=== PATIENT | male | born 1950 | race African-American/Black ===

== ENCOUNTER 2021-03-09 19:03 | Emergency (ER) | payer OTHER, MEDICAID ==
[~2021-03-09] VITALS: Ht 182.9 cm; Wt 88.0 kg
[~2021-03-09 19:03] MED LIST: AMLO5TAB4 PO; ATOR20TA65 PO; DICY10CA88 PO; ESOM40CA PO; GABA-529 PO; METO25TA6 PO; MORP30TA66 PO; POTA10CA42 PO; TERA2CAP4 PO; TRAZ-251 PO
[2021-03-09] MEDS ORDERED: LIDOCAINE HCL/EPINEPHRINE 1%-EPI 1:100,000 50 ML VIAL INFIL ONE (19:45)
[2021-03-09] MEDS ORDERED: TETANUS, DIPHTHERIA, PERTUSSIS VAC/PF 0.5ML (>7YR OLD) IM ONE (19:45)
[2021-03-09] MEDS ORDERED: ACETAMINOPHEN 325MG TABLET PO ONE (19:45)
[2021-03-09] MEDS ORDERED: LIDOCAINE HCL/EPINEPHRINE 1%-EPI 1:100,000 20 ML VIAL INFIL NR (20:00)
[2021-03-09 21:55] VITALS: BP 142/81
== END 2021-03-09 22:19 | disposition home or self-care (01) ==
LOC: ER 19:03
DX: S01.01XA Laceration without foreign body of scalp, initial encounter (principal); S62.664A Nondisplaced fracture of distal phalanx of right ring finger, initial encounter for closed fracture; I10 Essential (primary) hypertension; W01.0XXA Fall on same level from slipping, tripping and stumbling without subsequent striking against object, initial encounter; Y93.89 Activity, other specified; Y92.012 Bathroom of single-family (private) house as the place of occurrence of the external cause
CPT/HCPCS: 12002; 70450; 73140; 90471; 90715; 99284; J3490

== ENCOUNTER 2021-03-16 20:48 | Emergency (ER) | payer OTHER, MEDICAID ==
[~2021-03-16] VITALS: Ht 182.9 cm; Wt 84.0 kg
[2021-03-16 21:02] VITALS: BP 123/88
== END 2021-03-16 21:56 | disposition home or self-care (01) ==
LOC: ER 20:48
DX: Z48.02 Encounter for removal of sutures (principal)
CPT/HCPCS: 99281

== ENCOUNTER 2022-05-12 18:33 | Emergency (ER) | payer OTHER, MEDICAID ==
[~2022-05-12] VITALS: Ht 177.8 cm; Wt 87.0 kg
[2022-05-12 18:37] VITALS: BP 136/97
[2022-05-12] MEDS ORDERED: KETOROLAC 30MG/ML VIAL IM ONE (19:45)
[2022-05-12] MEDS ORDERED: KETOROLAC 30MG/ML VIAL IM NR (23:15)
[2022-05-13] MEDS ORDERED: HYDR-4001 MT (00:53)
== END 2022-05-13 02:31 | disposition home or self-care (01) ==
LOC: ER 18:33
DX: M25.561 Pain in right knee (principal); I10 Essential (primary) hypertension; Z85.6 Personal history of leukemia; Z98.890 Other specified postprocedural states; Z79.899 Other long term (current) drug therapy
CPT/HCPCS: 72170; 73560; 96372; 99284; J1885

== ENCOUNTER 2023-06-16 20:50 | Emergency (ER) | payer OTHER, MEDICAID ==
[~2023-06-16] VITALS: Ht 175.3 cm; Wt 80.0 kg
[~2023-06-16 20:50] MED LIST changes: +DICY-18 PO; -DICY10CA88 PO; +HYDR-4001 MT; -POTA10CA42 PO; +POTA10CA83 PO
[2023-06-16 20:55] VITALS: O2SAT 98
[2023-06-16] MEDS ORDERED: ACETAMINOPHEN 325MG TABLET PO STA (22:16)
[2023-06-16 23:39] LABS: BASOPHILS % 0.3 % (0.0-2.0); EOSINOPHILS % 0.2 % (0.0-5.0); HEMATOCRIT. 38.2 % (42.0-52.0); HEMOGLOBIN. 12.4 g/dL (14.0-18.0); LYMPHOCYTES % 11.5 % (20.0-50.0); MEAN CORPUSCULAR HEMOGLOBIN 29.8 pg (28.0-32.0); MEAN CORPUSCULAR HGB CONC 32.3 g/dL (31.0-37.0); MEAN CORPUSCULAR VOLUME 92.2 fL (80.0-94.0); MEAN PLATELET VOLUME 7.8 fl (7.4-10.4); MONOCYTES % 8.5 % (2.0-8.0); NEUTROPHILS % 79.5 % (40.0-76.0); PLATELET 230 x1000/uL (130-400); RED BLOOD CELL COUNT 4.15 mill/uL (4.7-6.1); RED CELL DISTRIBUTION WIDTH 15.7 % (11.6-14.6); WHITE BLOOD COUNT 10.4 x1000/uL (4.5-11.0)
[2023-06-17 00:07] LABS: ALANINE AMINOTRANSFERASE 14 IU/L (10-49); ALBUMIN 4.1 g/dL (3.2-4.8); ASPARTATE AMINOTRANSFERASE 24 IU/L (<34); BILIRUBIN TOTAL 0.6 mg/dL (0.1-1.0); CARBON DIOXIDE 25 mEq/L (21-32); CHLORIDE 101 mEq/L (98-107); CREATININE 1.3 mg/dL (0.6-1.3); GLUCOSE 104 mg/dL (70-105); POTASSIUM 3.7 mEq/L (3.5-5.1); PROTEIN TOTAL 7.1 g/dL (6.0-8.3); SODIUM 136 mEq/L (136-145); UREA NITROGEN BLOOD 15 mg/dL (9-23)
[2023-06-17] MEDS ORDERED: MORPHINE SULFATE 4 MG/ML CPJ (NOT FOR IM USE) IV ONE (01:00)
[2023-06-17 01:12] LABS: CLARITY URINE CLEAR (CLEAR); COLOR URINE YELLOW (YELLOW); GLUCOSE URINE NEGATIVE (NEGATIVE); KETONES URINE NEGATIVE (NEGATIVE); LEUKOCYTE ESTERASE URINE NEGATIVE (NEGATIVE); NITRITE URINE NEGATIVE (NEGATIVE); OCCULT BLOOD URINE NEGATIVE (NEGATIVE); PROTEIN URINE TRACE (NEGATIVE); SPECIFIC GRAVITY URINE 1.015 (1.005-1.030)
[2023-06-17 01:16] LABS: BACTERIA URINE NONE SEEN; RBC URINE 0-2 /hpf (0-2); SQUAMOUS EPITHELIAL CELL URINE NONE SEEN /lpf (RARE/1+); WBC URINE 0-2 /hpf (0-2); YEAST URINE NONE SEEN
[2023-06-17 01:39] LABS: TROPONIN I HIGH SENSITIVITY 16 ng/L (3.0-53)
[2023-06-17 01:49] LABS: TROPONIN I HIGH SENSITIVITY 15 ng/L (3.0-53)
[2023-06-17 02:24] VITALS: TEMP 98.2
[2023-06-17 02:48] VITALS: BP 155/86; PULSE 72; RESP 12
[2023-06-17] MEDS ORDERED: FENTANYL CITRATE 50 MCG/ML IV NR (04:15)
== END 2023-06-17 04:33 | disposition short-term general hospital (02) ==
LOC: ER 20:50
DX: S12.110A Anterior displaced Type II dens fracture, initial encounter for closed fracture (principal); I10 Essential (primary) hypertension; E78.00 Pure hypercholesterolemia, unspecified; Z98.890 Other specified postprocedural states; Z96.653 Presence of artificial knee joint, bilateral; Z85.9 Personal history of malignant neoplasm, unspecified; X58.XXXA Exposure to other specified factors, initial encounter; Y93.89 Activity, other specified; Y92.89 Other specified places as the place of occurrence of the external cause; Y99.8 Other external cause status
CPT/HCPCS: 99285; 70450; 71045; 80053; 83880; 85025; 84484 ×2; 36415 ×2; 72125; 96374; 96375; 81003; J3010; J2270

== ENCOUNTER 2024-02-19 17:48 | Emergency (ER) | payer OTHER, MEDICAID ==
[~2024-02-19] VITALS: Ht 180.3 cm; Wt 81.0 kg
[2024-02-19 17:50] VITALS: O2SAT 100
[2024-02-19] MEDS: SODIUM CHLORIDE 0.9% 1,000 ML IV ONE (18:23)
[2024-02-19 18:30] VITALS: TEMP 98
[2024-02-19 19:45] LABS: BASOPHILS % 0.4 % (0.0-2.0); EOSINOPHILS % 1.3 % (0.0-5.0); HEMATOCRIT. 38.4 % (42.0-52.0); HEMOGLOBIN. 12.5 g/dL (14.0-18.0); LYMPHOCYTES % 30.1 % (20.0-50.0); MEAN CORPUSCULAR HEMOGLOBIN 30.5 pg (28.0-32.0); MEAN CORPUSCULAR HGB CONC 32.6 g/dL (31.0-37.0); MEAN CORPUSCULAR VOLUME 93.6 fL (80.0-94.0); MEAN PLATELET VOLUME 7.6 fl (7.4-10.4); MONOCYTES % 10.3 % (2.0-8.0); NEUTROPHILS % 57.9 % (40.0-76.0); PLATELET 199 x1000/uL (130-400); RED CELL DISTRIBUTION WIDTH 16.5 % (11.6-14.6); WHITE BLOOD COUNT 6.2 x1000/uL (4.5-11.0)
[2024-02-19 19:48] LABS: CARBON DIOXIDE 23 mEq/L (21-32); CHLORIDE 108 mEq/L (98-107); POTASSIUM 3.3 mEq/L (3.5-5.1); SODIUM 139 mEq/L (136-145)
[2024-02-19 19:49] LABS: CALCIUM 9.4 mg/dL (8.7-10.4)
[2024-02-19 19:54] LABS: GLUCOSE 70 mg/dL (70-105); UREA NITROGEN BLOOD 15 mg/dL (9-23)
[2024-02-19 19:56] LABS: ALANINE AMINOTRANSFERASE 20 IU/L (10-49); ALBUMIN 3.9 g/dL (3.2-4.8); ASPARTATE AMINOTRANSFERASE 18 IU/L (<34); BILIRUBIN DIRECT 0.2 mg/dL (<=3.0); BILIRUBIN TOTAL 0.5 mg/dL (0.1-1.0); PROTEIN TOTAL 6.6 g/dL (6.0-8.3); TROPONIN I HIGH SENSITIVITY 15 ng/L (3.0-53)
[2024-02-19 21:00] VITALS: BP 158/98; PULSE 82; RESP 15
== END 2024-02-19 21:20 | disposition home or self-care (01) ==
LOC: ER 17:48
DX: R53.1 Weakness (principal); R42 Dizziness and giddiness; I10 Essential (primary) hypertension; Z85.9 Personal history of malignant neoplasm, unspecified; Z98.890 Other specified postprocedural states; Z79.899 Other long term (current) drug therapy
CPT/HCPCS: 99285; 96360; 71045; 80076; 80048; 83605; 85025; 84484; 36415; 93005; J7030

== ENCOUNTER 2024-03-16 18:39 | Inpatient (IN) | payer OTHER, MEDICAID ==
[~2024-03-16] VITALS: Ht 182.9 cm; Wt 93.0 kg
[2024-03-16] MEDS: SODIUM CHLORIDE 0.9% 1,000 ML IV ONE (19:49)
[2024-03-16] MEDS: MORPHINE SULFATE 4 MG/ML INJ (FOR IV/IM USE) IV ONE (19:51)
[2024-03-16 20:13] LABS: BASOPHILS % 0.4 % (0.0-2.0); EOSINOPHILS % 0.3 % (0.0-5.0); HEMOGLOBIN. 13.3 g/dL (14.0-18.0); LYMPHOCYTES % 15.6 % (20.0-50.0); MEAN CORPUSCULAR HEMOGLOBIN 29.8 pg (28.0-32.0); MEAN CORPUSCULAR HGB CONC 31.6 g/dL (31.0-37.0); MEAN CORPUSCULAR VOLUME 94.2 fL (80.0-94.0); MEAN PLATELET VOLUME 8.7 fl (7.4-10.4); MONOCYTES % 2.2 % (2.0-8.0); NEUTROPHILS % 81.5 % (40.0-76.0); PLATELET 246 x1000/uL (130-400); RED BLOOD CELL COUNT 4.46 mill/uL (4.7-6.1); RED CELL DISTRIBUTION WIDTH 18.2 % (11.6-14.6); WHITE BLOOD COUNT 7.1 x1000/uL (4.5-11.0)
[2024-03-16 20:21] LABS: CARBON DIOXIDE 18 mEq/L (21-32); CHLORIDE 109 mEq/L (98-107); SODIUM 134 mEq/L (136-145)
[2024-03-16 20:22] LABS: CALCIUM 10.5 mg/dL (8.7-10.4)
[2024-03-16 20:27] LABS: GLUCOSE 122 mg/dL (70-105); UREA NITROGEN BLOOD 22 mg/dL (9-23)
[2024-03-16 20:39] LABS: CREATININE 1.6 mg/dL (0.6-1.3)
[2024-03-16 20:40] LABS: POTASSIUM 6.4 mEq/L (3.5-5.1); TROPONIN I HIGH SENSITIVITY 120 ng/L (3.0-53)
[2024-03-16] MEDS ORDERED: CALCIUM GLUCONATE 1,000 MG in DEXT 5% WATER 100 ML IV ONE (20:45)
[2024-03-16 21:06] LABS: ALANINE AMINOTRANSFERASE 106 IU/L (10-49); ALBUMIN 4.6 g/dL (3.2-4.8); ASPARTATE AMINOTRANSFERASE 110 IU/L (<34); BILIRUBIN DIRECT 0.2 mg/dL (<=3.0); BILIRUBIN TOTAL 0.4 mg/dL (0.1-1.0); LACTIC ACID 2.4 mmol/L (0.4-2.0)
[2024-03-16 21:07] LABS: PROTEIN TOTAL 8.9 g/dL (6.0-8.3)
[2024-03-16] MEDS: DILTIAZEM HCL 5MG/ML 5ML VIAL IV ONE (21:35)
[2024-03-16 22:39] LABS: TROPONIN I HIGH SENSITIVITY 1336 ng/L (3.0-53)
[2024-03-16] MEDS: HYDROMORPHONE HCL/PF 2MG/ML INJ IV ONE (22:48)
[2024-03-16] MEDS: DEXTROSE 50% WATER 50ML SYRINGE IV ONE (22:59)
[2024-03-16] MEDS: INSULIN REGULAR (HUMULIN R) 1000UNITS/10ML VIAL IV SCH (23:00)
[2024-03-16] MEDS: CALCIUM GLUCONATE 1GM PREMIX 50 ML IV SCH (23:01)
[2024-03-16] MEDS: PIPERACILLIN/TAZO 3.375G/50ML 50 ML IV STA (23:01)
[2024-03-16] MEDS: SODIUM BICARBONATE 8.4% 50MEQ/50ML SYR IV ONE (23:01)
[2024-03-16] MEDS: INSULIN REGULAR (HUMULIN R) 1000UNITS/10ML VIAL IV ONE (23:05)
[2024-03-16] MEDS ORDERED: GUAIFENESIN 200MG/10ML SUGAR FREE UDC PO PRN (23:15)
[2024-03-16] MEDS ORDERED: MAGNESIUM/ALUMINUM HYDROXIDE/SIMETHICONE 30ML UDC PO PRN (23:15)
[2024-03-16] MEDS ORDERED: ACETAMINOPHEN 325MG TABLET PO PRN ×2 (23:15)
[2024-03-16] MEDS ORDERED: CLONIDINE 0.1MG TABLET PO PRN (23:15)
[2024-03-16] MEDS ORDERED: ONDANSETRON HCL 4MG/2ML INJ IV PRN (23:15)
[2024-03-16] MEDS ORDERED: IPRATROPIUM/ALBUTEROL 0.5-3(2.5)MG/3ML NEB HHN PRN (23:15)
[2024-03-16] MEDS ORDERED: DOCUSATE SODIUM 100MG CAPSULE PO PRN (23:15)
[2024-03-16] MEDS ORDERED: SODIUM CHLORIDE 0.9% 1,000 ML IV SCH (23:15)
[2024-03-16] MEDS ORDERED: IOHEXOL-350 100 ML BOTTLE ONE (23:26)
[2024-03-16 23:35] LABS: CHLORIDE 111 mEq/L (98-107)
[2024-03-16 23:36] LABS: CALCIUM 8.9 mg/dL (8.7-10.4); CARBON DIOXIDE 31 mEq/L (21-32)
[2024-03-16 23:37] LABS: POTASSIUM 3.4 mEq/L (3.5-5.1); SODIUM 149 mEq/L (136-145)
[2024-03-16 23:41] LABS: CREATININE 1.4 mg/dL (0.6-1.3); GLUCOSE 198 mg/dL (70-105); TRIGLYCERIDE 95 mg/dL (0-150)
[2024-03-16 23:42] LABS: LDL CHOLESTEROL 38 mg/dL (5-100); UREA NITROGEN BLOOD 22 mg/dL (9-23)
[2024-03-16 23:43] LABS: CHOLESTEROL 83 mg/dL (<200); HDL CHOLESTEROL < 20 mg/dL (>55)
[2024-03-16 23:44] LABS: PHOSPHORUS 1.8 mg/dL (2.5-4.9)
[2024-03-16 23:47] LABS: T4 FREE 0.98 ng/dL (0.89-1.76); THYROID STIMULATING HORMONE 2.29 uIU/mL (0.55-4.78)
[2024-03-16 23:48] LABS: ETHANOL BLOOD < 10 mg/dL (<10)
[2024-03-17] VITALS (8 sets, daily range): BP systolic 115–171; BP diastolic 77–108; PULSE 83–103; RESP 9–17; TEMP 97–98.4
[2024-03-17] MEDS: METOPROLOL TARTRATE 25MG TABLET PO SCH (00:15)
[2024-03-17] MEDS ORDERED: APIX5TAB PO (00:18)
[2024-03-17] MEDS ORDERED: LISI40TA13 PO (00:18)
[2024-03-17] MEDS ORDERED: NIFE-32 PO (00:18)
[2024-03-17] MEDS ORDERED: TERA10CA4 PO (00:18)
[2024-03-17] MEDS ORDERED: HEPARIN 5000 UNITS/ML VIAL IV PRN (00:30)
[2024-03-17] MEDS: HEPARIN 5000 UNITS/ML VIAL IV SCH (00:54)
[2024-03-17 01:42] LABS: AMMONIA < 17 uMol/L (<32)
[2024-03-17 01:43] LABS: TROPONIN I HIGH SENSITIVITY 1678 ng/L (3.0-53)
[2024-03-17] MEDS: HEPARIN 25,000 UNITS PREMIX 250 ML IV PRN (02:14)
[2024-03-17] MEDS ORDERED: CEFEPIME 1GM IN DEXT 5% 50ML IV SCH (04:15)
[2024-03-17] MEDS ORDERED: CEFTRIAXONE 1GM/50ML 50 ML IV SCH (06:00)
[2024-03-17 06:38] LABS: BASOPHILS % 0.6 % (0.0-2.0); EOSINOPHILS % 0.1 % (0.0-5.0); HEMATOCRIT. 35.4 % (42.0-52.0); HEMOGLOBIN. 11.4 g/dL (14.0-18.0); LYMPHOCYTES % 9.4 % (20.0-50.0); MEAN CORPUSCULAR HEMOGLOBIN 30.1 pg (28.0-32.0); MEAN CORPUSCULAR HGB CONC 32.4 g/dL (31.0-37.0); MEAN CORPUSCULAR VOLUME 92.9 fL (80.0-94.0); MONOCYTES % 8.5 % (2.0-8.0); NEUTROPHILS % 81.4 % (40.0-76.0); PLATELET 263 x1000/uL (130-400); RED BLOOD CELL COUNT 3.81 mill/uL (4.7-6.1); RED CELL DISTRIBUTION WIDTH 16.8 % (11.6-14.6); WHITE BLOOD COUNT 22.9 x1000/uL (4.5-11.0)
[2024-03-17 06:44] LABS: CALCIUM 10.1 mg/dL (8.7-10.4); CARBON DIOXIDE 22 mEq/L (21-32); CHLORIDE 108 mEq/L (98-107); POTASSIUM 3.7 mEq/L (3.5-5.1); SODIUM 137 mEq/L (136-145)
[2024-03-17 06:49] LABS: CREATININE 1.6 mg/dL (0.6-1.3)
[2024-03-17 06:50] LABS: GLUCOSE 145 mg/dL (70-105); UREA NITROGEN BLOOD 23 mg/dL (9-23)
[2024-03-17 06:52] LABS: CREATINE KINASE 147 IU/L (46-171); PHOSPHORUS 2.6 mg/dL (2.5-4.9)
[2024-03-17 06:55] LABS: TROPONIN I HIGH SENSITIVITY 1588 ng/L (3.0-53)
[2024-03-17] MEDS: KETOROLAC 30MG/ML VIAL IV NR (07:16)
[2024-03-17] MEDS: CEFEPIME 1GM/50ML 50 ML IV SCH (07:52)
[2024-03-17] MEDS: SODIUM CHLORIDE 0.9% 1,000 ML IV ONE (07:52)
[2024-03-17] MEDS ORDERED: APIXABAN 5 MG TABLET PO SCH (09:00)
[2024-03-17] MEDS: PANTOPRAZOLE SODIUM 40 MG/VIAL IV SCH (11:52)
[2024-03-17] MEDS: LISINOPRIL 40MG TABLET PO SCH (11:52)
[2024-03-17] MEDS: NIFEDIPINE XL 60MG TAB PO SCH (11:54)
[2024-03-17 18:31] LABS: CREATINE KINASE 117 IU/L (46-171)
[2024-03-17 18:34] LABS: TROPONIN I HIGH SENSITIVITY 754 ng/L (3.0-53)
[2024-03-17] MEDS: TERAZOSIN HCL 5MG CAPSULE PO SCH (21:55)
[2024-03-17] MEDS: ATORVASTATIN CALCIUM 40MG TABLET PO SCH (21:55)
[2024-03-17] MEDS: HEPARIN 5000 UNITS/ML VIAL IV PRN (21:56)
[2024-03-17] MEDS: TRAMADOL 50MG TABLET PO NR (22:29)
[2024-03-18] VITALS (12 sets, daily range): BP systolic 91–137; BP diastolic 71–90; PULSE 78–123; RESP 11–21; TEMP 97–98.1
[2024-03-18] MEDS: DEXT 5%/0.45% NACL 1000ML 1,000 ML IV SCH (03:51)
[2024-03-18 06:21] LABS: POTASSIUM 3.2 mEq/L (3.5-5.1)
[2024-03-18 06:22] LABS: CALCIUM 8.6 mg/dL (8.7-10.4)
[2024-03-18 06:27] LABS: CREATININE 1.5 mg/dL (0.6-1.3)
[2024-03-18 06:45] LABS: BASOPHILS % 0.6 % (0.0-2.0); EOSINOPHILS % 1.3 % (0.0-5.0); HEMATOCRIT. 28.8 % (42.0-52.0); HEMOGLOBIN. 9.5 g/dL (14.0-18.0); LYMPHOCYTES % 12.9 % (20.0-50.0); MEAN CORPUSCULAR HEMOGLOBIN 29.9 pg (28.0-32.0); MEAN CORPUSCULAR HGB CONC 33.2 g/dL (31.0-37.0); MEAN CORPUSCULAR VOLUME 90.1 fL (80.0-94.0); MEAN PLATELET VOLUME 9.7 fl (7.4-10.4); MONOCYTES % 8.2 % (2.0-8.0); PLATELET 219 x1000/uL (130-400); RED BLOOD CELL COUNT 3.19 mill/uL (4.7-6.1); RED CELL DISTRIBUTION WIDTH 16.4 % (11.6-14.6); WHITE BLOOD COUNT 15.7 x1000/uL (4.5-11.0)
[2024-03-18 07:47] LABS: CLARITY URINE CLEAR (CLEAR); COLOR URINE YELLOW (YELLOW); GLUCOSE URINE NEGATIVE (NEGATIVE); KETONES URINE TRACE (NEGATIVE); LEUKOCYTE ESTERASE URINE 1+ (NEGATIVE); NITRITE URINE NEGATIVE (NEGATIVE); OCCULT BLOOD URINE TRACE (NEGATIVE); PROTEIN URINE 1+ (NEGATIVE); SPECIFIC GRAVITY URINE 1.039 (1.005-1.030)
[2024-03-18 07:57] LABS: *AMPHETAMINES SCREEN URINE NEGATIVE (NEGATIVE); *BARBITURATES SCREEN URINE NEGATIVE (NEGATIVE); *BENZODIAZEPINES SCREEN URINE NEGATIVE (NEGATIVE); *COCAINE SCREEN URINE NEGATIVE (NEGATIVE); METHADONE URINE SCREEN NEGATIVE (NEGATIVE)
[2024-03-18 07:58] LABS: CANNABINOID URINE SCREEN NEGATIVE (NEGATIVE); ECSTASY MDMA SCREEN URINE NEGATIVE (NEGATIVE); OPIATES URINE SCREEN PRESUMPTIVE POSITIVE (NEGATIVE); PHENCYCLIDINE URINE SCREEN NEGATIVE (NEGATIVE)
[2024-03-18 08:05] LABS: SODIUM URINE RANDOM 17 mEq/L
[2024-03-18 08:09] LABS: OSMOLALITY URINE 434 mOsm/kg (500-850)
[2024-03-18 09:48] LABS: SQUAMOUS EPITHELIAL CELL URINE 1+ /lpf (RARE/1+)
[2024-03-18 09:50] LABS: WBC URINE 25-50 /hpf (0-2)
[2024-03-18 09:51] LABS: BACTERIA URINE 2+; RBC URINE 0-2 /hpf (0-2)
[2024-03-18] MEDS: POTASSIUM CHLORIDE 20MEQ TABLET SR PO NR (10:08)
[2024-03-18] MEDS: ASPIRIN 81MG TABLET PO SCH (10:08)
[2024-03-18] MEDS: MEROPENEM 1G/100ML IV SCH (17:45)
[2024-03-18] MEDS: APIXABAN 5 MG TABLET PO SCH (18:18)
[2024-03-19] VITALS (13 sets, daily range): BP systolic 117–147; BP diastolic 75–96; PULSE 60–107; RESP 10–16; TEMP 97.4–98.5; O2SAT 98
[2024-03-19] MEDS: LIDOCAINE HCL 1% 10 MG/ML 10ML VIAL ONE (07:41)
[2024-03-19 08:22] LABS: POTASSIUM 4.4 mEq/L (3.5-5.1)
[2024-03-19 08:24] LABS: CALCIUM 9.1 mg/dL (8.7-10.4)
[2024-03-19 08:28] LABS: CREATININE 1.4 mg/dL (0.6-1.3)
[2024-03-19 13:50] LABS: BASOPHILS % 0.5 % (0.0-2.0); EOSINOPHILS % 0.6 % (0.0-5.0); HEMOGLOBIN. 10.9 g/dL (14.0-18.0); LYMPHOCYTES % 16.4 % (20.0-50.0); MEAN CORPUSCULAR HEMOGLOBIN 30.4 pg (28.0-32.0); MEAN CORPUSCULAR VOLUME 92.1 fL (80.0-94.0); MEAN PLATELET VOLUME 8.9 fl (7.4-10.4); MONOCYTES % 8.1 % (2.0-8.0); NEUTROPHILS % 74.4 % (40.0-76.0); PLATELET 310 x1000/uL (130-400); RED BLOOD CELL COUNT 3.59 mill/uL (4.7-6.1); RED CELL DISTRIBUTION WIDTH 16.8 % (11.6-14.6); WHITE BLOOD COUNT 9.3 x1000/uL (4.5-11.0)
[2024-03-20] MEDS ORDERED: FAMOTIDINE 20MG/2ML VIAL IV SCH (09:00)
== END 2024-03-19 21:00 | disposition short-term general hospital (02) | DRG 871 ==
LOC: ER 18:39 → MICUSO 21:35 → EDBEDREQ 21:37 → EDBEDREQSVC 03-17 01:09 → 5EST 03-17 09:13
PROVIDERS: ADMIT Preventive Medicine Clinical Informatics; ATTEND Preventive Medicine Clinical Informatics
DX: A41.51 Sepsis due to Escherichia coli [E. coli] (principal); G92.8 Other toxic encephalopathy; I21.A1 Myocardial infarction type 2; N13.6 Pyonephrosis; N17.9 Acute kidney failure, unspecified; C64.9 Malignant neoplasm of unspecified kidney, except renal pelvis; I13.0 Hypertensive heart and chronic kidney disease with heart failure and stage 1 through stage 4 chronic kidney disease, or unspecified chronic kidney disease; I50.30 Unspecified diastolic (congestive) heart failure; R65.20 Severe sepsis without septic shock; I25.10 Atherosclerotic heart disease of native coronary artery without angina pectoris; D64.9 Anemia, unspecified; E11.22 Type 2 diabetes mellitus with diabetic chronic kidney disease; Z96.652 Presence of left artificial knee joint; K21.9 Gastro-esophageal reflux disease without esophagitis; N18.31 Chronic kidney disease, stage 3a; E78.00 Pure hypercholesterolemia, unspecified; Z96.643 Presence of artificial hip joint, bilateral; Z85.528 Personal history of other malignant neoplasm of kidney; Z86.73 Personal history of transient ischemic attack (TIA), and cerebral infarction without residual deficits; Z87.442 Personal history of urinary calculi; Z90.5 Acquired absence of kidney
CPT/HCPCS: 36415; 70496; 70498; 70551; 71045; 71275; 74176; 80048; 80061; 80076; 80305; 80320; 81003; 82140; 82550; 83036; 83605; 83735; 83880; 83930; 83935; 84100; 84145; 84300; 84439; 84443; 84484; 85025; 87077; 87186; 92523; 93005; 93306; 97162; 97166; 99291; 99292; C1893; J0610; J0692; J1170; J1644; J1815; J1885; J2185; J2270; J2470; J2543; J3490; J7030; J7060; Q9967; G0480

== ENCOUNTER 2024-04-13 21:44 | Inpatient (IN) | payer OTHER, MEDICAID ==
[~2024-04-13] VITALS: Ht 182.9 cm; Wt 88.5 kg
[~2024-04-13 21:44] MED LIST changes: +APIX5TAB PO; +LISI40TA13 PO; +NIFE-32 PO; -POTA10CA83 PO; +POTA10CA93 PO; +TERA10CA4 PO
[2024-04-13] MEDS: ACETAMINOPHEN 1000MG/100ML 100 ML IV ONE (23:00)
[2024-04-13] MEDS ORDERED: SODIUM CHLORIDE 0.9% 500 ML IV ONE (23:30)
[2024-04-14 00:05] LABS: BASOPHILS % 0.2 % (0.0-2.0); EOSINOPHILS % 0.1 % (0.0-5.0); HEMATOCRIT. 31.4 % (42.0-52.0); HEMOGLOBIN. 10.3 g/dL (14.0-18.0); LYMPHOCYTES % 8.5 % (20.0-50.0); MEAN CORPUSCULAR HEMOGLOBIN 30.3 pg (28.0-32.0); MEAN CORPUSCULAR HGB CONC 32.9 g/dL (31.0-37.0); MEAN CORPUSCULAR VOLUME 92.2 fL (80.0-94.0); MEAN PLATELET VOLUME 7.8 fl (7.4-10.4); MONOCYTES % 8.6 % (2.0-8.0); NEUTROPHILS % 82.6 % (40.0-76.0); PLATELET 212 x1000/uL (130-400); RED BLOOD CELL COUNT 3.41 mill/uL (4.7-6.1); RED CELL DISTRIBUTION WIDTH 16.3 % (11.6-14.6); WHITE BLOOD COUNT 14.7 x1000/uL (4.5-11.0)
[2024-04-14 00:13] LABS: CHLORIDE 107 mEq/L (98-107); POTASSIUM 3.4 mEq/L (3.5-5.1); SODIUM 136 mEq/L (136-145)
[2024-04-14 00:14] LABS: CALCIUM 8.9 mg/dL (8.7-10.4); CARBON DIOXIDE 19 mEq/L (21-32)
[2024-04-14 00:17] LABS: INR 1.2; PROTHROMBIN TIME 13.7 sec (9.6-11.0)
[2024-04-14 00:19] LABS: GLUCOSE 128 mg/dL (70-105); UREA NITROGEN BLOOD 27 mg/dL (9-23)
[2024-04-14 00:20] LABS: TROPONIN I HIGH SENSITIVITY 45 ng/L (3.0-53)
[2024-04-14 00:22] LABS: CREATININE 2.1 mg/dL (0.6-1.3)
[2024-04-14] MEDS ORDERED: VANCOMYCIN 1G PREMIX 200 ML IV SCH (00:30)
[2024-04-14] MEDS: SODIUM CHLORIDE 0.9% 1,000 ML IV ONE ×2 (00:30→06:32)
[2024-04-14] MEDS: VANCOMYCIN 1.5GM/250ML IV NR (00:45)
[2024-04-14 01:13] LABS: LACTIC ACID 2.2 mmol/L (0.4-2.0)
[2024-04-14 01:23] LABS: *AMPHETAMINES SCREEN URINE NEGATIVE (NEGATIVE); *BARBITURATES SCREEN URINE NEGATIVE (NEGATIVE); *BENZODIAZEPINES SCREEN URINE NEGATIVE (NEGATIVE); *COCAINE SCREEN URINE NEGATIVE (NEGATIVE); CANNABINOID URINE SCREEN NEGATIVE (NEGATIVE); METHADONE URINE SCREEN NEGATIVE (NEGATIVE); OPIATES URINE SCREEN NEGATIVE (NEGATIVE); PHENCYCLIDINE URINE SCREEN NEGATIVE (NEGATIVE)
[2024-04-14 01:24] LABS: ECSTASY MDMA SCREEN URINE NEGATIVE (NEGATIVE)
[2024-04-14 01:36] LABS: TROPONIN I HIGH SENSITIVITY 47 ng/L (3.0-53)
[2024-04-14 03:30] LABS: CLARITY URINE TURBID (CLEAR); COLOR URINE YELLOW (YELLOW); GLUCOSE URINE NEGATIVE (NEGATIVE); KETONES URINE NEGATIVE (NEGATIVE); LEUKOCYTE ESTERASE URINE 3+ (NEGATIVE); NITRITE URINE NEGATIVE (NEGATIVE); OCCULT BLOOD URINE 3+ (NEGATIVE); PROTEIN URINE 2+ (NEGATIVE); SPECIFIC GRAVITY URINE 1.013 (1.005-1.030)
[2024-04-14 04:45] LABS: BACTERIA URINE 3+; RBC URINE 0-2 /hpf (0-2); SQUAMOUS EPITHELIAL CELL URINE 1+ /lpf (RARE/1+); WBC URINE TNTC /hpf (0-2)
[2024-04-14] MEDS: PIPERACILLIN/TAZO 3.375G/50ML 50 ML IV NR (06:31)
[2024-04-14] MEDS: SODIUM CHLORIDE 0.9% 1,000 ML IV SCH (15:23)
[2024-04-14] MEDS: HYDROCODONE/ACETAMINOPHEN 5/325MG TABLET PO PRN (18:13)
[2024-04-14] MEDS: CLONIDINE 0.2MG TABLET PO PRN (18:51)
[2024-04-14] MEDS: ATORVASTATIN CALCIUM 40MG TABLET PO SCH (21:21)
[2024-04-15 01:00] VITALS: BP_SYST 144; BP_DIAS 83; BP_DIAS 87; PULSE 85; PULSE 87; RESP 16; TEMP 36.22512; TEMP 36.2512; O2SAT 99
[2024-04-15 04:00] VITALS: BP 163/84; PULSE 94; RESP 18; TEMP 36.44736; O2SAT 97
[2024-04-15 08:00] VITALS: BP 131/77; PULSE 77; RESP 20; TEMP 37.72524; O2SAT 99
[2024-04-15] MEDS: ASPIRIN 81MG TABLET PO SCH (08:53)
[2024-04-15 12:00] VITALS: BP 139/83; PULSE 82; RESP 20; TEMP 37.16964; O2SAT 100
[2024-04-15] MEDS: CEFTRIAXONE 1GM/50ML 50 ML IV SCH (15:11)
[2024-04-15] MEDS: PANTOPRAZOLE SODIUM 40 MG/VIAL IV SCH (15:12)
[2024-04-15] MEDS: ENOXAPARIN 30MG/0.3ML SYR SUBCUT SCH (15:12)
[2024-04-15 16:00] VITALS: BP 148/87; PULSE 72; RESP 20; TEMP 36.9474; TEMP 36.94740; O2SAT 100
[2024-04-15] MEDS ORDERED: NALOXONE HCL 0.4MG/ML VIAL IV PRN (16:45)
[2024-04-15 16:52] VITALS: BP 145/78; PULSE 77; TEMP 98; O2SAT 99
[2024-04-15 17:05] LABS: BASOPHILS % 0.5 % (0.0-2.0); EOSINOPHILS % 1.3 % (0.0-5.0); LYMPHOCYTES % 10.1 % (20.0-50.0); MEAN CORPUSCULAR HEMOGLOBIN 30.5 pg (28.0-32.0); MEAN CORPUSCULAR HGB CONC 32.1 g/dL (31.0-37.0); MEAN CORPUSCULAR VOLUME 94.8 fL (80.0-94.0); MEAN PLATELET VOLUME 8.9 fl (7.4-10.4); MONOCYTES % 7.5 % (2.0-8.0); NEUTROPHILS % 80.6 % (40.0-76.0); PLATELET 188 x1000/uL (130-400); RED BLOOD CELL COUNT 3.27 mill/uL (4.7-6.1); RED CELL DISTRIBUTION WIDTH 16.3 % (11.6-14.6); WHITE BLOOD COUNT 11.9 x1000/uL (4.5-11.0)
[2024-04-15 17:16] LABS: CALCIUM 8.6 mg/dL (8.7-10.4); CARBON DIOXIDE 20 mEq/L (21-32); CHLORIDE 111 mEq/L (98-107); POTASSIUM 3.4 mEq/L (3.5-5.1); SODIUM 138 mEq/L (136-145)
[2024-04-15 17:21] LABS: CREATININE 1.3 mg/dL (0.6-1.3)
[2024-04-15 17:22] LABS: GLUCOSE 98 mg/dL (70-105); UREA NITROGEN BLOOD 20 mg/dL (9-23)
== END 2024-04-15 17:45 | disposition short-term general hospital (02) | DRG 872 ==
LOC: ER 21:44 → 5WST 04-14 02:22 → EDBEDREQ 04-14 02:28 → EDBEDREQTM 04-14 02:28 → 8WST 04-15 00:56
PROVIDERS: ADMIT Internal Medicine; ATTEND Internal Medicine
DX: A41.9 Sepsis, unspecified organism (principal); N39.0 Urinary tract infection, site not specified; N17.9 Acute kidney failure, unspecified; N20.2 Calculus of kidney with calculus of ureter; I13.10 Hypertensive heart and chronic kidney disease without heart failure, with stage 1 through stage 4 chronic kidney disease, or unspecified chronic kidney disease; Z86.73 Personal history of transient ischemic attack (TIA), and cerebral infarction without residual deficits; N18.9 Chronic kidney disease, unspecified; I25.10 Atherosclerotic heart disease of native coronary artery without angina pectoris; I25.2 Old myocardial infarction; Z85.528 Personal history of other malignant neoplasm of kidney
CPT/HCPCS: 36415; 71045; 80048; 80305; 80320; 81003; 83605; 83880; 84145; 84484; 85025; 87077; 87186; 93005; 99291; J0696; J1650; J2470; J2543; J7030; G0480; J0131